=== PATIENT | female | born 1980 | race African-American/Black ===

== ENCOUNTER 2016-05-09 09:37 | Emergency (ER) | payer OTHER ==
--- NOTE | 2016-05-09 10:38 | ER Document Report ---
ED General - General Chief Complaint: Abdominal Pain Stated Complaint: ABDOMINAL CRAMPS Mode of Arrival: Ambulatory Information source: Patient Notes: Patient presents to the emergency department with complaints of burning urgency and pain when she voids. She reports the symptoms started Wednesday a.m. She took some [id number]-ptiwrfe medications but still feels bad. She also complains abdominal cramps and constipation. She reports she had a stool yesterday and noted blood around the stool. She reports the stool was very hard and just small little brian. She reports for the past few months she's had loose stools so this was unusual. She does report history of constipation. She had a colonoscopy and October 2014 and everything was normal. She denies other symptoms such as fever vomiting. TRAVEL OUTSIDE OF THE [place] IN LAST 30 DAYS: No - HPI Onset: Other Onset/Duration: Persistent Quality of pain: Burning, Cramping Severity: Severe Pain Level: 5 Associated symptoms: None Exacerbated by: Denies Relieved by: Denies Similar symptoms previously: Yes Recently seen / treated by doctor: No Past Medical History - General Information source: Patient Last Menstrual Period: 03/23/17 - Social History Smoking Status: Never Smoker Cigarette use (# per day): No Frequency of alcohol use: None Drug Abuse: None Lives with: Family Family History: Reviewed & Not Pertinent Pulmonary Medical History: Reports: Hx Asthma Renal/ Medical History: Denies: Hx Peritoneal Dialysis GI Medical History: Reports: Other - constipation Musculoskeltal Medical History: Reports Hx Arthritis Past Surgical History: Reports: Hx Tubal Ligation Review of Systems - Review of Systems Notes: Review HPI for review of systems., All other systems negative Physical Exam - Vital signs Vitals: Temp Pulse Resp BP Pulse Ox 99.1 F 86 20 125/84 98 05/09/16 09:54 05/09/16 09:54 05/09/16 09:54 05/09/16 09:54 05/09/16 09:54 - Notes Notes: PHYSICAL EXAMINATION: GENERAL: Well-appearing and in no acute distress non toxic looking HEAD: Atraumatic, normocephalic. EYES: Pupils equal round extraocular movements intact, sclera anicteric, conjunctiva are normal. ENT: nares patent, Moist mucous membranes. NECK: Normal range of motion, supple without lymphadenopathy LUNGS: CTAB and equal. No wheezes rales or rhonchi. HEART: Regular rate and rhythm without murmurs ABDOMEN: Soft, c/o low abdominal tenderness. No guarding, no rebound EXTREMITIES: Normal range of motion, no pitting edema. No cyanosis. NEUROLOGICAL: Cranial nerves grossly intact. Normal sensory/motor PSYCH: Normal mood, normal affect. SKIN: Warm, Dry, normal turgor, no rashes or lesions noted - Rectal Tenderness: No Stool: Heme negative Notes: witness by marilou contreras pct Course - Re-evaluation Re-evalutation: 05/09/16 13:13 Patient still does not have her labs drawn. Lab did not show up to draw them and the nurses were unable to drive. I talked with patient about all results that were back. I instructed patient on recently constipation. Importance of follow-up. She does have a primary care provider and resources for GI provider. Patient declines to stay for lab. Patient instructed that unable to make a full dx because labs were not back. The patient presents with abdominal pain without signs of peritonitis or other life threatening or serious etiology. The patient appears stable for discharge and has been instructed to return immediately if the symptoms worsen in any way or in 8-12 hours if not improved for reevaluation. The patient has been instructed to return if the symptoms worsen or change in any way. 05/09/16 13:16 I have consulted the attending provider dr chapin per [facility] guidelines - Vital Signs Vital signs: Temp Pulse Resp BP Pulse Ox 98.5 F 68 20 140/84 H 100 05/09/16 12:50 05/09/16 12:50 05/09/16 09:55 05/09/16 12:50 05/09/16 12:50 - Laboratory Laboratory results interpreted by me: 05/09/16 11:00 Urine Ascorbic Acid 40 H - Diagnostic Test Radiology reviewed: Image reviewed, Reports reviewed - IMPRESSION: NO RADIOGRAPHIC EVIDENCE FOR ACUTE ABDOMINAL DISEASE. Discharge - Discharge Clinical Impression: abdominal pain, Constipation, Dysuria, Elevated blood pressure reading Condition: Stable Disposition: AGAINST MEDICAL ADVICE Instructions: Abdominal Pain ([facility]), Stool Softener ([facility]) Additional Instructions: *You have been evaluated for abdominal pain, pain while voiding, constipation, UTI,constipation *Monitor your blood pressure. Your blood pressure was elevated today. This may be because you were anxious, in pain or because you need medication. It is important to follow up with your primary care provider for full evaluation. *Take stool softener as indicated *Push fluids *Follow up with your primary care provider within one week for recheck *Follow-up with fiber optic central office installer to discuss constipation. *Return to ED for worsening condition, changes, needs Forms: Elevated Blood Pressure
[2016-05-09 11:54] LABS: APPEARANCE,URINE CLEAR; BILIRUBIN,URINE NEGATIVE (NEGATIVE); GLUCOSE, URINE NEGATIVE (NEGATIVE); KETONES,URINE NEGATIVE (NEGATIVE); LEUKOCYTE ESTERASE,URINE NEGATIVE (NEGATIVE); NITRITE,URINE NEGATIVE (NEGATIVE); PROTEIN,URINE NEGATIVE (NEGATIVE); URINE SPECIFIC GRAVITY 1.017; UROBILINOGEN,URINE NEGATIVE mg/dL (<2.0)
[2016-05-09 12:57] VITALS: BP 140/84
== END 2016-05-09 13:15 | disposition left against medical advice (07) ==
LOC: ER 09:37
DX: R10.9 Unspecified abdominal pain (principal); K59.00 Constipation, unspecified; R30.0 Dysuria; R03.0 Elevated blood-pressure reading, without diagnosis of hypertension; R30.9 Painful micturition, unspecified; R39.15 Urgency of urination
CPT/HCPCS: 74000; 81001; 82272; 99284

== ENCOUNTER 2018-06-28 20:17 | Emergency (ER) | payer OTHER ==
[2018-06-28 20:31] VITALS: BP 140/95
[2018-06-28] MEDS ORDERED: NORMAL SALINE 1000 ML 1,000 ML IV ONE (20:35)
[2018-06-28] MEDS ORDERED: ONDANSETRON HCL INJ/PF 4 MG/2 ML SDV IV ONE (20:35)
--- NOTE | 2018-06-28 20:36 | ER Document Report ---
ED Medical Screen (RME) - General Chief Complaint: Upper Abdominal Pain Stated Complaint: ABDOMINAL PAIN Time Seen by Provider: 06/28/18 20:31 TRAVEL OUTSIDE OF THE [place] IN LAST 30 DAYS: No - HPI Notes: 06/28/18 20:35 Patient is a 38-year-old female with a history of low back pain and gallstones who presents the emergency department complaining of right upper quadrant/epigastric abdominal pain that has been ongoing for the last month and a half intermittently, but worsened today. Patient states that she did have 2 episodes of vomiting associated. The pain will occasionally radiate to her right shoulder blade. Food makes her pain worse. She is otherwise urinating normally and having normal bowel movements. Denies any headache, fever, URI, sore throat, chest pain, palpitations, syncope, cough, shortness of breath, wheeze, dyspnea, diarrhea, urinary retention, dysuria, hematuria, or rash. I have treated and performed a rapid initial assessment of this patient. A comprehensive ED assessment and evaluation of the patient, analysis of test results and completion of medical decision making process will be conducted by additional ED providers. PHYSICAL EXAMINATION: GENERAL: Well-appearing, well-nourished and in no acute distress. A&Ox4. Answers questions appropriately. LUNGS: Breath sounds clear to auscultation bilaterally and equal. No wheezes rales or rhonchi. HEART: Regular rate and rhythm without murmurs, rubs, gallops. ABDOMEN: Soft, nondistended abdomen. No guarding, no rebound. Normal bowel sounds present. No CVA tenderness bilaterally. + RUQ/epigastric tenderness (cannot elicit thorough abd exam w/o table, however). Extremities: No cyanosis, clubbing, or edema b/l. NEUROLOGICAL: Normal speech, normal gait. PSYCH: Normal mood, normal affect. - Related Data Allergies/Adverse Reactions: No Known Allergies Allergy (Unverified 06/28/18 20:18) Past Medical History Pulmonary Medical History: Reports: Hx Asthma Renal/ Medical History: Denies: Hx Peritoneal Dialysis Musculoskeltal Medical History: Reports Hx Arthritis Past Surgical History: Reports: Hx Tubal Ligation Physical Exam - Vital signs Vitals: Temp Pulse Resp BP Pulse Ox 98.5 F 100 18 140/95 H 99 06/28/18 20:28 06/28/18 20:28 06/28/18 20:28 06/28/18 20:28 06/28/18 20:28 Course - Vital Signs Vital signs: Temp Pulse Resp BP Pulse Ox 98.5 F 100 18 140/95 H 99 06/28/18 20:28 06/28/18 20:28 06/28/18 20:28 06/28/18 20:28 06/28/18 20:28
--- NOTE | 2018-06-28 21:29 | RADIOLOGY REPORT (SQ) ---
EXAM DESCRIPTION: US ABDOMEN LIMITED COMPLETED DATE/TME: 06/28/2018 20:34 CLINICAL HISTORY: 38 years, Female, RUQ/epigastric pain COMPARISON: None. TECHNIQUE: Limited right upper quadrant ultrasound LIMITATIONS: None. FINDINGS: Echogenic appearance to the liver consistent with fatty infiltrative change. Multiple mobile shadowing stones throughout the gallbladder lumen. No gallbladder wall thickening. Negative sonographic Escamilla sign. CBD measures 3.7 mm. Visualized pancreas, abdominal aorta, inferior vena cava, right kidney unremarkable. No ascites IMPRESSION: Cholelithiasis. No sonographic evidence for cholecystitis. Fatty infiltrative change to the liver copyright 2010 [employer]- All Rights Reserved
[2018-06-28 22:41] LABS: ABSOLUTE EOSINOPHILS # (AUTO) 0.2 10^3/uL (0.0-0.6); ABSOLUTE LYMPHOCYTES (AUTO) 3.1 10^3/uL (0.5-4.7); ABSOLUTE MONOCYTES (AUTO) 0.5 10^3/uL (0.1-1.4); ABSOLUTE NEUT (AUTO) 4.9 10^3/uL (1.7-8.2); BASOPHILS % (AUTO) 0.3 % (0-2); EOSINOPHILS % (AUTO) 1.9 % (0-6); HEMATOCRIT 37.6 % (36.0-47.0); HEMOGLOBIN 12.7 g/dL (12.0-15.5); LYMPHOCYTES % (AUTO) 35.4 % (13-45); MEAN CORPUSCULAR HEMOGLOBIN 28.5 pg (27.0-33.4); MEAN CORPUSCULAR HGB CONC 33.7 g/dL (32.0-36.0); MEAN CORPUSCULAR VOLUME 85 fl (80-97); MONOCYTES % (AUTO) 5.9 % (3-13); PLATELET COUNT 320 10^3/uL (150-450); RED BLOOD COUNT 4.45 10^6/uL (3.72-5.28); RED CELL DISTRIBUTION WIDTH 14.1 % (11.5-14.0); SEGMENTED NEUTROPHILS % (AUTO) 56.5 % (42-78); TOTAL CELLS COUNTED % (AUTO) 100 %; WHITE BLOOD COUNT 8.6 10^3/uL (4.0-10.5)
[2018-06-28] MEDS ORDERED: GLYCOPYRROLATE INJ 0.4 MG/2 ML VIAL IM ONE (22:53)
[2018-06-28] MEDS ORDERED: MORPHINE SULFATE 10 MG/ML INJ IV ONE (22:53)
--- NOTE | 2018-06-28 23:10 | ER Document Report ---
ED General - General Chief Complaint: Upper Abdominal Pain Stated Complaint: ABDOMINAL PAIN Time Seen by Provider: 06/28/18 20:31 Primary Care Provider: ANUSHA GALDAMEZ DO [Primary Care Provider] - Follow up as needed TRAVEL OUTSIDE OF THE [place] IN LAST 30 DAYS: No - HPI Notes: Patient presents emergency department for evaluation of right upper quadrant pain. Is been going on for the last several months. She states she has been seen 3 times at [facility] for this. She has an appointment with a surgeon on the of this month. She states now that no matter what she eats she seems to have nausea and vomiting. It seems to increase her pain significantly. She says it starts is sharp and stabbing, then feels squeezing. She rates it a 10 out of 10. She denies any true fevers, states her temperature has been as high as 99.6. Normal bowel movements. Still able to keep down fluids, still urinating. - Related Data Allergies/Adverse Reactions: No Known Allergies Allergy (Unverified 06/28/18 20:18) Past Medical History - General Information source: Patient - Social History Smoking Status: Never Smoker Family History: Reviewed & Not Pertinent Pulmonary Medical History: Reports: Hx Asthma Renal/ Medical History: Denies: Hx Peritoneal Dialysis Musculoskeletal Medical History: Reports Hx Arthritis Past Surgical History: Reports: Hx Tubal Ligation Review of Systems - Review of Systems Constitutional: No symptoms reported EENT: No symptoms reported Cardiovascular: No symptoms reported Respiratory: No symptoms reported Gastrointestinal: See HPI Genitourinary: No symptoms reported Female Genitourinary: No symptoms reported Musculoskeletal: No symptoms reported Skin: No symptoms reported Neurological/Psychological: No symptoms reported Physical Exam - Vital signs Vitals: Temp Pulse Resp BP Pulse Ox 98.5 F 100 18 140/95 H 99 06/28/18 20:28 06/28/18 20:28 06/28/18 20:28 06/28/18 20:28 06/28/18 20:28 - Notes Notes: Vital signs reviewed, please refer to chart. Patient is normocephalic, atraumatic. Pupils equal round, reactive to light. Neck is supple without meningismus. Heart is regular rate and rhythm. Lungs are clear to auscultation bilaterally. Abdomen is soft, moderate epigastric and right upper quadrant tenderness to palpation. No rebound or guarding. Negative Escamilla's. Extremities without cyanosis, clubbing, edema. Peripheral pulses are equal. Skin is warm and dry. Patient is awake, alert, neurological exam is nonfocal. Course - Re-evaluation Re-evalutation: 06/28/18 23:09 Patient presents to the emergency department for evaluation. She already has k nown cholelithiasis and is awaiting an appointment with surgery. Laboratory investigations, fluids, and her initial medications as ordered through triage. Right upper quadrant ultrasound was performed, revealing cholelithiasis without evidence of obstruction or infection. Her white count is normal. We will treat symptomatically for pain and reevaluate. 06/29/18 01:07 Patient feeling somewhat improved. Laboratory investigations unremarkable. Patient remained stable. At this point she is to follow-up as an outpatient. Stay well-hydrated. Given [place] and Zofran to go from the emergency department. She is to return to the ED with worsening or new concerning symptoms of any sort. - Vital Signs Vital signs: Temp Pulse Resp BP Pulse Ox 98.5 F 100 18 140/95 H 99 06/28/18 20:28 06/28/18 20:28 06/28/18 20:28 06/28/18 20:28 06/28/18 20:28 - Laboratory Result Diagrams: 06/28/18 22:10 06/28/18 23:55 Laboratory results interpreted by me: 06/28/18 06/28/18 22:10 23:55 RDW 14.1 H Chloride 108 H Discharge - Discharge Clinical Impression: Cholelithiasis Condition: Stable Disposition: HOME, SELF-CARE Instructions: Gallbladder Disease ([facility]) Additional Instructions: Stay hydrated with small, frequent sips of fluids. Take medications as prescribed for pain and nausea. Follow-up as scheduled. If you develop fevers, increased pain, yellowing of the skin or eyes, or any other new or concerning symptoms, return immediately to the emergency department for reevaluation.
[2018-06-29 00:43] LABS: ALANINE AMINOTRANSFERASE 34 U/L (9-52); ALBUMIN 3.6 g/dL (3.5-5.0); ALKALINE PHOSPHATASE 78 U/L (38-126); ANION GAP 9 (5-19); ASPARTATE AMINO TRANSFERASE 26 U/L (14-36); BILIRUBIN,DIRECT 0.3 mg/dL (0.0-0.4); BILIRUBIN,TOTAL 0.3 mg/dL (0.2-1.3); BLOOD UREA NITROGEN 8 mg/dL (7-20); CARBON DIOXIDE 23 mmol/L (22-30); CHLORIDE 108 mmol/L (98-107); GLUCOSE 88 mg/dL (75-110); LIPASE 44.7 U/L (23-300); POTASSIUM 4.3 mmol/L (3.6-5.0); SODIUM 140.2 mmol/L (137-145); TOTAL PROTEIN 6.8 g/dL (6.3-8.2)
[2018-06-29] MEDS ORDERED: ONDANSETRON ODT 4 MG TAB (6 TAB/ER DISP) PO PRN (01:06)
[2018-06-29] MEDS ORDERED: HYDROCODONE/ACETAMINOPHEN 5-325 MG (6 TAB/ER DISP) PO PRN (01:06)
--- NOTE | 2018-06-29 07:48 | EKG REPORT ---
SEVERITY:- OTHERWISE NORMAL ECG - SINUS TACHYCARDIA : Confirmed by: Cody French MD 29-Jun-2018 07:47:26
== END 2018-06-29 01:30 | disposition home or self-care (01) ==
LOC: ER 20:17
DX: K80.20 Calculus of gallbladder without cholecystitis without obstruction (principal); R10.11 Right upper quadrant pain
CPT/HCPCS: 93005; 99284; 96372; 96361; 96374; 96375; 36415; 83690; 85025; 80053; 76705; 93010; J2270; J2405; J7030